=== PATIENT | female | born 1980 | race Caucasian/White ===

== ENCOUNTER 2016-11-28 11:54 | Emergency (ER) | payer MEDICAID ==
[2016-11-28 12:03] VITALS: BP 129/88; PULSE 96; RESP 18; TEMP 97.9; O2SAT 95
--- NOTE | 2016-11-28 12:05 | EDPHY ---
H & P Stated Complaint: URI sxs, sore throat x 3 days Time Seen by Provider: 11/28/16 12:05 - Personal History LMP (Females 10-55): Hysterectomy Current Tetanus Diphtheria and Acellular Pertussis (TDAP): Yes - Medical/Surgical History Other PMH: psych - Social History Smoking Status: Current every day smoker Constitutional: Initial Vital Signs Temperature (C) 36.6 C 11/28/16 11:56 Heart Rate 96 11/28/16 11:56 Respiratory Rate 18 11/28/16 11:56 Blood Pressure 129/88 H 11/28/16 11:56 O2 Sat (%) 95 11/28/16 11:56 O2 Delivery Mode Room Air Allergies/Adverse Reactions: ciprofloxacin [From Cipro] Allergy (Mild, Verified 11/28/16 11:59) Rash Sulfa (Sulfonamide Antibiotics) Allergy (Mild, Verified 11/28/16 11:59) Rash Home Medications: Medication Instructions Recorded AZITHROMYCIN [Z-PACK] 250 mg PO DAILY #1 packet 11/28/16 [place] Carbonate [[place] 300 mg PO 11/28/16 Carbonate Cap 300 mg (*)] Naltrexone HCl 50 mg PO 11/28/16 QUEtiapine FUMARATE [Seroquel 100 100 mg PO DAILY 11/28/16 mg (*)] buPROPion [Wellbutrin] 100 mg PO 11/28/16 hydrOXYzine HCL [Vistaril 25MG] 25 mg PO 11/28/16 lamoTRIgine [LamICTAL 100 MG (*)] 100 mg PO 11/28/16 predniSONE 40 mg PO DAILY #3 tab 11/28/16 Medical Decision Making ED Course/Re-evaluation: CHIEF COMPLAINT: Sore throat HISTORY OF PRESENT ILLNESS: This patient is a 36 year old female complaining of sore throat for the last three days, beginning Saturday evening. She states the [facility] directed her to seek care since she had been sick for three days. She states that other residents of the house are sick with similar symptoms. She says she generally hasn't been feeling well, but denies fever, chills, nausea, vomiting, or other associated symptoms. She has been taking Naltrexone 100mg to prevent relapse into opiate or alcohol abuse. REVIEW OF SYSTEMS: A 10 point review of systems was performed and is negative with the exception of the elements mentioned in the history of present illness. PHYSICAL EXAM: HR, BP, O2 Sat, RR. Temp noted General Appearance: Alert, well hydrated, appropriate, and non-toxic appearing. Head: Atraumatic without scalp tenderness or obvious injury Eyes: Pupils equal, round, reactive to light and accommodation, EOMI, no trauma , no injection. Ears: Clear bilaterally, no perforation, normal landmarks Nose: Atraumatic, no rhinorrhea, clear. Throat: Erythema, mild exudates. No lesions, normal tonsils, mucus membranes moist. Neck: Submandibular lymphadenopathy. Supple, nontender. Respiratory: Coarse rhonchi. No focal decrease. No retractions, no distress, no wheezes, and no accessory muscle use. Cardiovascular: Regular rate and rhythm, no murmurs, rubs, or gallops. Good capillary refill all extremities. Gastrointestinal: Abdomen is soft, nontender, non-distended, no masses, no rebound, no guarding, no peritoneal signs. Musculoskeletal: Normal active ROM of all extremities, atraumatic. Neurological: Alert, appropriate, and interactive. Non-focal neuro exam. Skin: No rashes, good turgor, no nodules on palpation. Past medical history: Psychological disorders. Past surgical history: Hysterectomy. Family history: Noncontributory Social history: Lives at [facility]. DIFFERENTIAL DIAGNOSIS: The differential diagnosis included but was not limited to bacterial or viral pharyngitis, bronchitis, pneumonia, viral syndrome, and sepsis MEDICAL DECISION MAKING: This patient is a 36 year old female presenting with a three day history of sore throat. Physical exam reveals erythematous throat with some exudate, as well as positive submandibular lymph nodes. She has coarse rhonchi as well. Will treat for pharyngitis and bronchitis. Plan to discharge home in good condition with a prescription for Z-pack and Prednisone 40mg. She declined pain medications. Return precautions discussed. The patient is comfortable with this plan. Departure - Departure Disposition: Home, Routine, Self-Care Clinical Impression: Acute pharyngitis Qualifiers: Pharyngitis/tonsillitis etiology: unspecified etiology Qualified Code(s): J02.9 - Acute pharyngitis, unspecified Condition: Good Instructions: Pharyngitis (ED) Additional Instructions: 1. Take your Z-pack as prescribed. It is important to finish your entire course of antibiotics. 2. Follow up with a primary care provider for symptoms unresolved in the next few days. 3. Return to the ED for fever, chills, vomiting, or other worsening of condition. Referrals: NONE *PRIMARY CARE P,. [Primary Care Provider] - As per Instructions [facility],. [Clinic] - As per Instructions Stand Alone Forms: Work Excuse Prescriptions: AZITHROMYCIN [Z-PACK] 250 mg PO DAILY #1 packet predniSONE 40 mg PO DAILY #3 tab Report Scribed for: Joaquin Sahu Report Scribed by: Shanti Ernandez Date of Report: 11/28/16 Time of Report: 12:16
== END 2016-11-28 12:33 | disposition home or self-care (01) ==
DX: J02.9 Acute pharyngitis, unspecified (principal); F17.200 Nicotine dependence, unspecified, uncomplicated